=== PATIENT | female | born 1935 | race Caucasian/White ===

== ENCOUNTER → 2024-10-07 11:32 | Outpatient (BNVA) | payer MEDICARE, SELFPAY | PROVIDERS: PCP Nurse Practitioner Family; Visit Provider Nurse Practitioner Family | DX: I10 Essential (primary) hypertension (principal); E11.9 Type 2 diabetes mellitus without complications; Z79.899 Other long term (current) drug therapy | CPT/HCPCS: 80053; 80061; 82043; 82306; 82607; 83036; 85025 ==

== ENCOUNTER → 2024-11-16 14:38 | Outpatient (BNVA) | payer MEDICARE, SELFPAY | PROVIDERS: PCP Nurse Practitioner Family; Visit Provider Nurse Practitioner Family | DX: R05.9 Cough, unspecified (principal) | CPT/HCPCS: 71046 ==

== ENCOUNTER → 2025-01-04 08:32 | Outpatient (BNVA) | payer MEDICARE, SELFPAY | PROVIDERS: PCP Nurse Practitioner Family; Visit Provider Nurse Practitioner Family | DX: I10 Essential (primary) hypertension (principal); E11.9 Type 2 diabetes mellitus without complications; E78.5 Hyperlipidemia, unspecified; M81.0 Age-related osteoporosis without current pathological fracture | CPT/HCPCS: 80053; 80061; 82306; 82607; 83036; 85025 ==

== ENCOUNTER → 2025-01-06 08:17 | Outpatient (BNVA) | payer MEDICARE, SELFPAY | PROVIDERS: PCP Nurse Practitioner Family; Visit Provider Nurse Practitioner Family | DX: E11.9 Type 2 diabetes mellitus without complications (principal) | CPT/HCPCS: 84443 ==

== ENCOUNTER → 2025-04-07 10:41 | Outpatient (BNVA) | payer MEDICARE, SELFPAY | PROVIDERS: PCP Nurse Practitioner Family; Visit Provider Nurse Practitioner Family | DX: R05.9 Cough, unspecified (principal); E11.9 Type 2 diabetes mellitus without complications; I70.90 Unspecified atherosclerosis | CPT/HCPCS: 71046; 80053; 80061; 83036; 84443; 85025 ==

== ENCOUNTER 2025-05-07 13:16 | Outpatient (CLI) | payer MEDICARE, SELFPAY ==
--- NOTE | 2025-05-07 14:00 | XR_ITS ---
WS: [id number] SCREENING DEXA SCAN [employer] CLINICAL INFORMATION: M81.0 - Age-related osteoporosis without current patholog... COMPARISON: None. FINDINGS: The L1-L4 bone mineral density measures 1.400 g/cm2. This corresponds to a T score score of 1.8 and Z score of 3.2. Left femoral neck bone mineral density measures 0.887 g/cm2. This corresponds to a T score of -1.0 and Z score of 1.1. Right femoral neck bone mineral density measures 0.796 g/cm2. This corresponds to a T score -1.7of and Z score of 0.3. Mean femoral neck bone mineral density measures 0.841 g/cm2. This corresponds to a T score of -1.3 and Z score of 0.7. XR/XR DEXA axial skeleton* [id number] IMPRESSION: Normal bone mineralization lumbar spine. Osteopenia femoral necks. Patient's FRAX calculated 10 year probability for major osteoporotic fracture i s 21.5% and osteoporotic hip fracture is 6.9%.
== END 2025-05-07 13:17 | disposition home or self-care (01) ==
PROVIDERS: PCP Nurse Practitioner Family; Visit Provider Nurse Practitioner Family
DX: Z13.820 Encounter for screening for osteoporosis (principal); M81.0 Age-related osteoporosis without current pathological fracture; M85.88 Other specified disorders of bone density and structure, other site
CPT/HCPCS: 77080

== ENCOUNTER → 2025-05-12 14:44 | Outpatient (BNVA) | payer MEDICARE, SELFPAY | PROVIDERS: PCP Nurse Practitioner Family; Visit Provider Student in an Organized Health Care Education/Training Program | DX: M25.561 Pain in right knee (principal); M25.562 Pain in left knee; M17.0 Bilateral primary osteoarthritis of knee | CPT/HCPCS: 20610; 73560; 73565; 99204; J3301; J9999 ==

== ENCOUNTER 2025-05-28 11:44 | Outpatient (RCR) | payer MEDICARE, SELFPAY | END 2025-05-28 23:59 | disposition home or self-care (01) | LOC: TPT 11:44 | PROVIDERS: PCP Nurse Practitioner Family; Visit Provider Nurse Practitioner Family | DX: R26.81 Unsteadiness on feet (principal); R29.6 Repeated falls | CPT/HCPCS: 97110; 97116; 97161; 97530 ==

== ENCOUNTER 2025-06-09 10:28 | Emergency (ER) | payer MEDICARE, SELFPAY ==
[2025-06-09 10:31] VITALS: BP 159/85; PULSE 96; RESP 18; TEMP 36.7; O2SAT 96; BMI 30.1
--- NOTE | 2025-06-09 10:32 | ECG_ITS ---
[facility] Test Date: 2025-06-09 Pat Name: Yamilka Islas Department: Room: Gender: Female Nuclear Medicine Medical Director: : 1935 Requested By: Paulie Gale Order Number: [id number] Lisandro MD: Charlie Spangler M.D. Measurements Intervals [place] Rate: 96 P: 79 NH: 178 QRS: 60 QRSD: 81 T: 52 QT: 353 QTc: 447 Interpretive Statements SINUS RHYTHM No previous ECG available for comparison Electronically Signed On 06-09-2025 20:04:57 BILLET CHECKER by Charlie Spangler M.D. [email or web address] [id number]
--- NOTE | 2025-06-09 10:34 | W.ED.CHESTPA ---
HPI - Chest Pain General: Chief Complaint: Chest Pain Stated Complaint: Chest Pain Time Seen by Provider: 06/09/25 10:30 History of Present Illness: 89-year-old female presents emergency room complaining of chest pain. She was going to put compression stockings on and began to have chest discomfort palpitations pain radiating into her shoulder and her back. She has not previously had episodes like this before. EMS was called she was given aspirin and sublingual nitro states after she got several nitro the symptoms resolved. She denies any shortness of breath with this. No fever sweats or chills. No vomiting or diarrhea no previous cardiac evaluations or stress testing. Patient is diabetic has a history of hypertension and is not a smoker. Associated symptoms: Deny abdominal pain, dyspnea or fever(s) Related Data Home Medications ?Medication ?Instructions ?Recorded ?Confirmed calcium 600 mg-D3 800 unit-mag11 1 tab PO DAILY 09/30/24 06/09/25 50 xx-oufi-xllnan-yony-s.borat tablet (Caltrate 600-D Plus Minerals) cholecalciferol (vitamin D3) 25 25 mcg PO DAILY 09/30/24 06/09/25 mcg (1,000 unit) capsule famotidine 20 mg tablet 20 mg PO BID 09/30/24 06/09/25 meclizine 25 mg tablet (Dramamine 25 mg PO DAILY PRN Dizziness Or 09/30/24 06/09/25 (meclizine)) Vertigo albuterol sulfate 90 mcg/actuation 2 puff inhalation Q6H PRN 06/09/25 06/09/25 aerosol inhaler Shortness Of Breath Or Wheezing Previous Rx's ?Medication ?Instructions ?Recorded alendronate 70 mg tablet (Fosamax) 70 mg PO .weekly #12 tabs 01/06/25 blood sugar diagnostic (Blood #100 ea 01/06/25 Glucose Test strips) budesonide-formoterol HFA 160 2 puff inhalation Q12H #10.2 grams 01/06/25 mcg-4.5 mcg/actuation aerosol inhaler (Symbicort) hydrochlorothiazide 25 mg tablet 12.5 mg (1/2 x 25 mg) PO DAILY #15 02/10/25 tabs fluticasone propionate 50 2 spray intranasal DAILY #16 grams 04/07/25 mcg/actuation nasal spray,suspension (Flonase Allergy Relief) levothyroxine 112 mcg capsule 112 mcg PO DAILY #90 caps 04/12/25 glipizide 5 mg tablet See Rx Instructions .Route 05/17/25 .COMPLEX #270 tabs ropinirole 0.5 mg tablet See Rx Instructions .Route 05/19/25 .COMPLEX #270 tabs metformin 1,000 mg tablet See Rx Instructions .Route 05/21/25 .COMPLEX #180 tabs losartan 25 mg tablet 25 mg PO DAILY #30 tabs 06/02/25 metoprolol tartrate 50 mg tablet 50 mg PO BID #60 tabs 06/02/25 aspirin 81 mg tablet,delayed 81 mg PO DAILY #30 tabs 06/09/25 release Allergies Allergy/AdvReac Type Severity Reaction Status Date / Time prednisone Allergy ADR-Agitate Verified 04/27/25 13:55 d Review of Systems Const: Denies: fever(s) or chills Card: Denies: chest pain Resp: Denies: dyspnea GI: Denies: abdominal pain : Denies: dysuria, urinary frequency or urinary urgency Musc: Denies: neck pain or back pain Skin/Breast: Denies: rash PFSH ED PFSH: Medical History Hypothyroid GERD (gastroesophageal reflux disease) Osteoporosis Lymphedema Restless legs syndrome (RLS) Hypertension Asthma Hyperlipidemia Type 2 diabetes mellitus Surgical History History of surgery on left wrist History of back surgery Social History Smoking and tobacco/nicotine status: never used tobacco/nicotine Alcohol intake: never Substance/Drug Use: never Caregiver/support person: No Lives independently: Yes Household members: family Housing: House Marital status: / Number of children: 4 service: No Current occupational status: retired Physical Exam Const: GENERAL APPEARANCE: cooperative ORIENTATION/CONSCIOUSNESS: Yes awake, Yes oriented to person, Yes oriented to place and Yes oriented to time HENMT: COMMON NORMALS: normocephalic, atraumatic and hearing grossly normal bilaterally HEAD & SCALP: normocephalic and atraumatic Resp: COMMON NORMALS: normal respiratory effort, No retractions, No use of accessory muscles and clear to auscultation bilaterally AUSCULTATION: clear to auscultation bilaterally Cardio: COMMON NORMALS: regular rate, regular rhythm and No murmurs present (Cardio) RATE: regular rate RHYTHM: regular rhythm GI: COMMON NORMALS: Soft to palpation and No hepatosplenomegaly present AUSCULTATION: Yes normoactive bowel sounds PALPATION: Yes Soft to palpation, No Tenderness to palpation present (GI), No Guarding due to palpation present (GI) and Yes No hepatosplenomegaly present Extremity: COMMON NORMALS: normal to inspection, capillary refill normal, no clubbing, cyanosis or edema, no calf tenderness and no pedal edema Neuro: SENSORIUM/ORIENTATION: Yes oriented to person, Yes oriented to place and Yes oriented to time Skin: COMMON NORMALS: no rashes or lesions noted GENERAL SKIN EXAM: no rashes or lesions noted Course Vital Signs: Vital signs: Vital Signs Temperature 98.1 F 06/09/25 10:31 Pulse Rate 81 06/09/25 13:38 Respiratory Rate 16 06/09/25 13:38 Blood Pressure 157/85 06/09/25 13:38 Pulse Oximetry 92 06/09/25 13:38 Oxygen Delivery Me thod Room Air 06/09/25 11:30 MDM - Chest Pain Medical Decision Making Brief episode of chest discomfort. No EKG changes cardiac enzymes negative. Is not having any further symptoms patient preferred to go home. Will discharge her home she should continue to take aspirin daily. Set her up to see cardiology for possible stress testing Medical Records I reviewed the patient's medical records. Lab Data I reviewed the patient's lab results. 06/09/25 10:46 06/09/25 10:46 Radiology Impressions Chest X-Ray 06/09/25 10:35 IMPRESSION: 1. Pulmonary hyperinflation. No acute process. Laboratory Results WBC 4.77 10^3/uL (3.29-11.43) 06/09/25 10:46 RBC 4.16 10^6/uL (3.85-5.65) 06/09/25 10:46 Hgb 12.80 g/dL (11.27-16.99) 06/09/25 10:46 Hct 38.6 % (36-47) 06/09/25 10:46 MCV 92.8 fl (85-98) 06/09/25 10:46 MCH 30.8 pg (27-33) 06/09/25 10:46 MCHC 33.2 g/dL (30-55) 06/09/25 10:46 RDW 12.7 % (12.1-15.1) 06/09/25 10:46 Plt Count 275 10^3/cmm (157-399) 06/09/25 10:46 MPV 9.6 fL (7.4-10.4) 06/09/25 10:46 Neut % (Auto) 50.1 % 06/09/25 10:46 Lymph % (Auto) 31.9 % 06/09/25 10:46 [place] % (Auto) 10.5 % 06/09/25 10:46 Eos % (Auto) 6.5 % 06/09/25 10:46 Baso % (Auto) 0.8 % 06/09/25 10:46 Neut # (Auto) 2.39 10^3/uL (1.8-7.7) 06/09/25 10:46 Lymph # (Auto) 1.5 10^3/uL (0.8-4.8) 06/09/25 10:46 [place] # (Auto) 0.5 10^3/uL (0.2-0.9) 06/09/25 10:46 Eos # (Auto) 0.3 10^3/uL (0.0-0.8) 06/09/25 10:46 Baso # (Auto) 0.0 10^3/uL (0.0-0.1) 06/09/25 10:46 Nucleated RBC % (auto) 0 % 06/09/25 10:46 Nucleated RBCs # 0.0 /100WBC 06/09/25 10:46 Sodium 139 mmol/L (136-145) 06/09/25 10:46 Potassium 4.4 mmol/L (3.5-5.1) 06/09/25 10:46 Chloride 101 mmol/L (98-107) 06/09/25 10:46 Carbon Dioxide 20 mmol/L (22-29) L 06/09/25 10:46 Anion Gap 22.4 (5-19) H 06/09/25 10:46 BUN 24 mg/dL (8-23) H 06/09/25 10:46 Creatinine 0.6 mg/dL (0.5-0.9) 06/09/25 10:46 GFR Calculation Not Reportable 06/09/25 10:46 Glucose 309 mg/dL (65-115) H 06/09/25 10:46 Calculated Osmolality 304 mOsm/kg (285-295) H 06/09/25 10:46 Calcium 9.6 mg/dL (8.5-10.5) 06/09/25 10:46 Total Bilirubin 0.2 mg/dL (0.15-1.2) 06/09/25 10:46 AST 19 U/L (0-32) 06/09/25 10:46 ALT 22 U/L (0-33) 06/09/25 10:46 Alkaline Phosphatase 47 U/L (35-105) 06/09/25 10:46 Troponin T Baseline 13 ng/L (0-10) H 06/09/25 10:46 Troponin T 120 Minute 12.88 ng/L (0-10) H 06/09/25 12:21 Delta Troponin T -0.12 ABS# (0-10) L 06/09/25 12:21 Total Protein 6.5 g/dL (6.6-8.7) L 06/09/25 10:46 Albumin 4.2 g/dL (3.5-5.2) 06/09/25 10:46 Globulin 2.3 g/dL (1.3-4.6) 06/09/25 10:46 All radiology interpretation(s) finalized by discharge EKG Data EKG 1: I personally reviewed and interpreted this EKG as follows: Interpretation: EKG 06/09/2025 1032 normal sinus rhythm rate of 96 OH interval 178 QTc [address] elevation or depression no T wave inversions. No previous EKGs available for comparison. EKG 2: Interpretation: EKG 06/09/2025 1235 normal sinus rhythm rate of 81 OH interval 175 QTc [address] changes noted no ST elevation compared to EKG done earlier same day no significant change Discharge Plan Discharge Patient Disposition: Home Clinical Impression: Atypical chest pain Condition: Stable Prescriptions: New aspirin 81 mg tablet,delayed release (DR/EC) 81 mg PO DAILY Qty: 30 0RF No Action alendronate [Fosamax] 70 mg tablet 70 mg PO .weekly Qty: 12 1RF ([facility] [place] Blood Glucose Test Strip See Rx Instructions .ROUTE .MEDSUPPLY Qty: 100 12RF Rx Instructions: check blood sugar twice daily and prn budesonide-formoterol [Symbicort] 160-4.5 mcg/actuation HFA aerosol inhaler 2 puff inhalation Q12H Qty: 10.2 5RF fluticasone propionate [Flonase Allergy Relief] 50 mcg/actuation spray,suspension 2 spray intranasal DAILY Qty: 16 0RF Rx Instructions: administer into each nostril famotidine 20 mg tablet 20 mg PO BID Caltrate 600-D Plus Minerals 600 mg calcium- 800 unit-50 mg tablet 1 tab PO DAILY meclizine [Dramamine (meclizine)] 25 mg tablet 25 mg PO DAILY PRN (Reason: Dizziness Or Vertigo) cholecalciferol (vitamin D3) 25 mcg (1,000 unit) capsule 25 mcg PO DAILY hydrochlorothiazide 25 mg tablet 12.5 mg PO DAILY Qty: 15 2RF Rx Instructions: 1/2 tab once daily levothyroxine 112 mcg capsule 112 mcg PO DAILY Qty: 90 0RF glipizide 5 mg tablet See Rx Instructions .ROUTE .COMPLEX Qty: 270 0RF Dose Instruction: TAKE 2 TABLETS BY MOUTH IN THE MORNING AND 1 IN THE EVENING Rx Instructions: TAKE 2 TABLETS BY MOUTH IN THE MORNING AND 1 IN THE EVENING ropinirole 0.5 mg tablet See Rx Instructions .ROUTE .COMPLEX Qty: 270 0RF Dose Instruction: TAKE 1 TABLET BY MOUTH THREE TIMES DAILY Rx Instructions: TAKE 1 TABLET BY MOUTH THREE TIMES DAILY metformin 1,000 mg tablet See Rx Instructions .ROUTE .COMPLEX Qty: 180 0RF Dose Instruction: Take 1 tablet by mouth twice daily Rx Instructions: Take 1 tablet by mouth twice daily losartan 25 mg tablet 25 mg PO DAILY Qty: 30 2RF metoprolol tartrate 50 mg tablet 50 mg PO BID Qty: 60 2RF albuterol sulfate 90 mcg/actuation HFA aerosol inhaler 2 puff INHALATION Q6H PRN (Reason: Shortness Of Breath Or Wheezing) Discharge Orders: Discharge ED (Routine); Ordered 06/09/25 Ordered By: Paulie Aquino Referrals: Lillian Ga, SENIOR ELECTRONICS TECHNICIAN [Primary Care Provider, Family Practice] Discharge Diet: Usual diet Discharge Activity: Resume usual activity Patient Instructions: Opioid Safety, Pain Management, Patient Portal & Jojo Instructions, Chest Pain (ED) Activity Restrictions/Additional Instructions: Thank you for choosing [facility] for your healthcare needs today. It is very important that you follow up as instructed or that you return to the Emergency Department should you have concerns or if your condition changes or worsens in any way. Emergency department visits are focused on emergent conditions, in some cases you may require further evaluation on an outpatient basis. You were seen in the emergency room with complaint of chest discomfort. Cardiac enzymes were negative your EKGs were normal. Continue take your current medications recommend you take a baby aspirin daily. Will set you up for an outpatient stress test and follow-up with your primary care doctor within the next week to reevaluate your blood pressure. environmental program manager will make arrangements for the outpatient stress test and follow-up with cardiology. (Please note that included in your discharge packet is information concerning opioid safety and pain management. This information is given to all patients were discharged from the ER regardless of their discharge diagnosis or the medicines they usually take or are prescribed.) Print Language: Kenyan Coding Level of Care Code ED Drophammer Operator for Chg Fwd Heart Score HEART Score Components History: Slightly Suspicous EKG: Normal Age: 65 or more yrs Risk Factors: 1 or 2 Risk Factors Troponin: Baseline Trop <16 ng/L HEART Score RESULT HEART Score: 3
--- NOTE | 2025-06-09 10:35 | XR_ITS ---
WS: [id number] Exam: XR chest 1V portable [id number] Date/Time of Exam: 06/09/2025 10:35 AM Reason For Exam: chest pain Comparison 04/07/2025. Lungs are hyperinflated and clear. Normal cardiomediastinal silhouette. No pleural effusion. Bony structures are intact. Degenerative change of the thoracic spine and signs of vertebroplasty involving a single lower thoracic vertebra. XR/XR chest 1V portable [id number] IMPRESSION: 1. Pulmonary hyperinflation. No acute process.
[2025-06-09 10:36] VITALS: PULSE 93; O2SAT 95
[2025-06-09 11:05] VITALS: BP 110/62; PULSE 87; O2SAT 99
[2025-06-09 11:08] LABS: Hematocrit 38.6 % (36-47); Hemoglobin 12.80 g/dL (11.27-16.99); Mean Corpuscular HGB Conc 33.2 g/dL (30-55); Mean Corpuscular Hemoglobin 30.8 pg (27-33); Mean Corpuscular Volume 92.8 fl (85-98); Nucleated Red Blood Cells % 0 %; Platelet Count 275 10^3/cmm (157-399); Red Blood Count 4.16 10^6/uL (3.85-5.65); White Blood Count 4.77 10^3/uL (3.29-11.43)
[2025-06-09 11:27] LABS: Alanine Aminotransferase 22 U/L (0-33); Albumin Level 4.2 g/dL (3.5-5.2); Alkaline Phosphatase 47 U/L (35-105); Aspartate Amino Transferase 19 U/L (0-32); Blood Urea Nitrogen 24 mg/dL (8-23); Calcium 9.6 mg/dL (8.5-10.5); Carbon Dioxide 20 mmol/L (22-29); Chloride 101 mmol/L (98-107); Globulin 2.3 g/dL (1.3-4.6); Glucose 309 mg/dL (65-115); Osmolality Calculated 304 mOsm/kg (285-295); Sodium 139 mmol/L (136-145); Total Protein 6.5 g/dL (6.6-8.7)
[2025-06-09 11:29] LABS: Anion Gap 22.4 (5-19); Potassium 4.4 mmol/L (3.5-5.1); Troponin(5th) Baseline 13 ng/L (0-10)
[2025-06-09 11:30] VITALS: BP 141/74; PULSE 97; O2SAT 94
--- NOTE | 2025-06-09 12:35 | ECG_ITS ---
[facility]: [facility] Pat Name: Yamilka Islas Department: Room: Gender: Female Tab Cutter: : 1935 Requested By: Paulie Gale Order Number: [id number] Lisandro MD: Kristian Serra M.D. Measurements Intervals [place] Rate: 81 P: 82 [place]: 175 QRS: 48 QRSD: 83 T: 44 QT: 377 QTc: 439 Interpretive Statements SINUS RHYTHM Compared to ECG 06/09/2025 10:32:22 No significant changes Electronically Signed On 06-11-2025 19:52:23 HACKSAW INSPECTOR by Kristian Serra M.D. [id number] [id number]
[2025-06-09 12:45] LABS: Troponin 5 2HR 12.88 ng/L (0-10)
[2025-06-09 12:47] LABS: Troponin 5 2HR Delta -0.12 ABS# (0-10)
[2025-06-09 13:38] VITALS: BP 157/85; PULSE 81; RESP 16; O2SAT 92
--- NOTE | 2025-06-10 09:58 | DCPLANNER ---
faxed outpatient roxy order to scheduling
== END 2025-06-09 13:39 | disposition home or self-care (01) ==
PROVIDERS: Emergency Provider Family Medicine; PCP Nurse Practitioner Family
DX: R07.89 Other chest pain (principal); Z79.84 Long term (current) use of oral hypoglycemic drugs
CPT/HCPCS: 36415; 71045; 80053; 84484; 85025; 93005; 99285

== ENCOUNTER → 2025-06-15 12:21 | Outpatient (BNVA) | payer MEDICARE, SELFPAY | PROVIDERS: PCP Nurse Practitioner Family; Visit Provider Nurse Practitioner Family | DX: E11.9 Type 2 diabetes mellitus without complications (principal); M79.674 Pain in right toe(s); Z09 Encounter for follow-up examination after completed treatment for conditions other than malignant neoplasm; E03.9 Hypothyroidism, unspecified; M81.0 Age-related osteoporosis without current pathological fracture | CPT/HCPCS: 80053; 80061; 82306; 82607; 83036; 83735; 84439; 84443; 84550; 85025 ==

== ENCOUNTER 2025-06-22 10:50 | Outpatient (RCR) | payer MEDICARE, SELFPAY | END 2025-06-27 23:59 | disposition home or self-care (01) | LOC: TPT 10:50 | PROVIDERS: PCP Nurse Practitioner Family; Visit Provider Nurse Practitioner Family | DX: R26.81 Unsteadiness on feet (principal) | CPT/HCPCS: 97110; 97116; 97530 ==

== ENCOUNTER → 2025-07-06 08:05 | Outpatient (BNVA) | payer MEDICARE, SELFPAY | PROVIDERS: PCP Nurse Practitioner Family; Visit Provider Physician Assistant | DX: M17.0 Bilateral primary osteoarthritis of knee (principal) | CPT/HCPCS: 73560; 73565; 99213 ==

== ENCOUNTER 2025-07-27 10:27 | Outpatient (RCR) | payer MEDICARE, SELFPAY | END 2025-07-28 23:59 | disposition home or self-care (01) | LOC: TPT 10:27 | PROVIDERS: PCP Nurse Practitioner Family; Visit Provider Nurse Practitioner Family | DX: R26.81 Unsteadiness on feet (principal) | CPT/HCPCS: 97110; 97116 ==